=== PATIENT | female | born 1985 | race Two or more races ===

== ENCOUNTER 2018-06-11 00:11 | Emergency (ER) | payer OTHER ==
[~2018-06-11] VITALS: Ht 170.2 cm; Wt 56.7 kg
[2018-06-11 00:15] VITALS: BP 112/74
[2018-06-11 01:06] LABS: APPEARANCE,URINE SL CLOUDY (CLEAR); BILIRUBIN,URINE NEGATIVE (NEGATIVE); BLOOD, URINE 3+ Ery/uL (NEGATIVE); KETONES,URINE NEGATIVE (NEGATIVE); LEUKOCYTE ESTERASE ,URINE 2+ (NEGATIVE); NITRITE, URINE NEGATIVE (NEGATIVE); PROTEIN,URINE 1+ mg/dl (NEGATIVE); UGLUCOSE NEGATIVE (NEGATIVE); UROBILINOGEN,URINE 0.2 EU/dL (0.2)
[2018-06-11 01:11] LABS: COLOR,URINE LIGHT PINK (YELLOW)
--- NOTE | 2018-06-11 01:11 | NUR ---
PT AA/OX4 COMPLAINING OF SUPRAPUBIC PAIN SINCE EARLIER THIS EVENING. "I HAVE A REALLY BAD UTI, I HAVE A HISTORY OF UTIs." NO S/S OF SOB. SKIN PINK, WARM,DRY. NO N/V. ACTIVE BOWEL SOUNDS NOTED. NAD. VSS. STABLE CONDITION. AMBULATED TO HOSPITAL BED WITH STABLE GAIT. WILL CONTINUE TO MONITOR.
[2018-06-11 01:14] LABS: BACTERIA,URINE 3+ /HPF (None Seen); RBC,URINE 51-80 /HPF (0-2); SQUAMOUS EPITHELIAL CELL,UR Moderate /HPF (None Seen); WBC,URINE 51-80 /HPF (0-3)
[2018-06-11] MEDS ORDERED: CIPROFLOXACIN HCL 500 MG TABLET PO ONE (01:30)
[2018-06-11] MEDS ORDERED: PHENAZOPYRIDINE HCL 200 MG TABLET PO ONE (01:30)
[2018-06-11] MEDS ORDERED: PHENAZOPYRIDINE HCL 200 MG TABLET ONE (01:32)
[2018-06-11] MEDS ORDERED: CIPROFLOXACIN HCL 500 MG TABLET ONE (01:32)
== END 2018-06-11 01:40 | disposition home or self-care (01) ==
LOC: ER 00:13
DX: N13.9 Obstructive and reflux uropathy, unspecified (principal); G40.909 Epilepsy, unspecified, not intractable, without status epilepticus; Z87.440 Personal history of urinary (tract) infections; Z60.2 Problems related to living alone
CPT/HCPCS: 81001; 84703; 87077; 87086; 87186; 99284; A4606; Z7610; 81000-TC

== ENCOUNTER 2019-09-11 00:31 | Emergency (ER) | payer BC, OTHER ==
[~2019-09-11] VITALS: Ht 170.2 cm; Wt 56.7 kg
--- NOTE | 2019-09-11 01:03 | NUR ---
C/C L EYE PAIN S/P TAKING CONTACTS OUT X3HRS AGO, GETTING WORSE, +BURNING, NO REDNESS NOTED. TO ER BED 3, AWAITING MD ANDINO
[2019-09-11] MEDS ORDERED: FLUORESCEIN SODIUM OPHTH 1 EA STRIP ONE (01:14)
[2019-09-11] MEDS ORDERED: GENTAMICIN OPTH SOLN 0.3% 5 ML BOTTLE ONE (01:24)
[2019-09-11] MEDS ORDERED: oxyCODONE/APAP (5/325 MG) 1 UDTAB TABLET ONE (01:24)
[2019-09-11] MEDS ORDERED: oxyCODONE/APAP (5/325 MG) 1 UDTAB TABLET PO ONE (01:30)
[2019-09-11] MEDS ORDERED: GENTAMICIN OPTH OINT 0.3% 3.5 G TUBE OP ONE (01:30)
--- NOTE | 2019-09-11 01:35 | NUR ---
Patient discharged to home in stable condition. Written and verbal after care instructions given. Patient verbalizes understanding of instruction.
[2019-09-11 01:36] VITALS: BP 132/82
== END 2019-09-11 01:36 | disposition home or self-care (01) ==
LOC: ER 00:33
DX: S05.02XA Injury of conjunctiva and corneal abrasion without foreign body, left eye, initial encounter (principal); G40.909 Epilepsy, unspecified, not intractable, without status epilepticus; Z60.2 Problems related to living alone; Z87.440 Personal history of urinary (tract) infections; X58.XXXA Exposure to other specified factors, initial encounter; Y93.89 Activity, other specified; Y92.89 Other specified places as the place of occurrence of the external cause; Y99.8 Other external cause status